=== PATIENT | male | born 1970 | race Caucasian/White ===

== ENCOUNTER → 2016-12-15 | Outpatient (CLI) | payer OTHER ==
[~2016-12-15] MED LIST: ALLERGY10 MG PO; AUGMENTIN 875-1 EACH PO; CYMBALTA60 MG PO; DESYREL 50 MG T50 MG PO; LIPITOR TAB 1010 MG PO; LORTAB 7.5-3251 EACH PO; METHOCARBAMOL500 MG PO; NEURONTIN 300300 MG PO; PAXIL10 MG PO; PRILOSEC OTC20 MG PO; REQUIP0.25 MG PO; ROBAXIN 750 MG750 MG PO; TRAZODONE HCL100 MG PO; ZESTRIL10 MG PO
== END ==
LOC: LAB 23:15
DX: Z02.83 Encounter for blood-alcohol and blood-drug test (principal)
CPT/HCPCS: 36415

== ENCOUNTER 2021-12-05 10:02 | Inpatient (IN) | payer OTHER ==
[~2021-12-05] VITALS: Ht 177.8 cm; Wt 99.0 kg
[~2021-12-05 10:02] MED LIST changes: +ALDACTONE25 MG PO; +COREG6.25 MG PO; +COZAAR25 MG PO; +ECOTRIN81 MG PO; +HUMIBID LA TAB600 MG PO; +LASIX20 MG PO; +LISINOPRIL-HCT1 EAC1 PO; +NORCO 7.5-3251 EACH PO; +OMNICEF 300 MG300 MG PO; +SYMBICORT 16010.2 GM INH
[2021-12-05 10:33] LABS: HEMOGLOBIN 13.2 gm/dl (14.0-17.5); RED BLOOD COUNT 4.61 M/UL (4.20-5.50); WHITE BLOOD COUNT 9.2 K/UL (4.5-11.0)
[2021-12-05 11:18] LABS: BUN/CREATININE RATIO 23 (0-10)
[2021-12-06 06:46] LABS: HEMOGLOBIN 13.3 gm/dl (14.0-17.5); RED BLOOD COUNT 4.67 M/UL (4.20-5.50); WHITE BLOOD COUNT 7.7 K/UL (4.5-11.0)
[2021-12-06 07:59] LABS: BUN/CREATININE RATIO 21 (0-10)
--- NOTE | 2021-12-06 15:29 | NUR ---
PATIENT HAS HEART RATE OF 108 AND BP OF 156/98. PROVIDER NOTIFIED AND FIRST DOSE OF COREG ORDERED TO BE GIVEN NOW. PHARMACY NOTIFIED AND PREVIOUS FIRST DOSE CHANGED FROM 2100 TO 1400. EDUCATION AND MEDICATION GIVEN TO PATIENT AND DAUGHTER. WCTM.
[2021-12-07 06:40] LABS: HEMOGLOBIN 13.2 gm/dl (14.0-17.5); RED BLOOD COUNT 4.76 M/UL (4.20-5.50)
[2021-12-07 07:22] LABS: BUN/CREATININE RATIO 18 (0-10)
[2021-12-08 06:24] LABS: HEMOGLOBIN 13.8 gm/dl (14.0-17.5); RED BLOOD COUNT 4.84 M/UL (4.20-5.50); WHITE BLOOD COUNT 8.3 K/UL (4.5-11.0)
[2021-12-08 06:45] LABS: BUN/CREATININE RATIO 16 (0-10)
[2021-12-08] MEDS ORDERED: ALDACTONE 25MG25 MG PO (13:09)
[2021-12-08] MEDS ORDERED: CARVEDILOL3.125 MG PO (13:09)
[2021-12-08] MEDS ORDERED: COZAAR 25MG TAB25 MG PO (13:09)
[2021-12-08] MEDS ORDERED: LASIX40 MG PO (13:09)
[2021-12-08] MEDS ORDERED: ASPIRIN EC81 MG PO (13:09)
== END 2021-12-08 15:41 | disposition home or self-care (01) | DRG 291 ==
LOC: ER1 10:02 → MED SURG 4 15:50 → CDU 15:50 → MED SURG 4 16:50
PROVIDERS: Emergency Medicine; Physician Assistant Medical; ADMIT Internal Medicine
PROC: B24BZZZ Ultrasonography of Heart with Aorta (ICD-10-PCS; principal; 2021-12-07)
DX: I11.0 Hypertensive heart disease with heart failure (principal); I50.23 Acute on chronic systolic (congestive) heart failure; J18.9 Pneumonia, unspecified organism; R18.8 Other ascites; I25.10 Atherosclerotic heart disease of native coronary artery without angina pectoris; I42.0 Dilated cardiomyopathy; E03.9 Hypothyroidism, unspecified; E78.5 Hyperlipidemia, unspecified; Z96.652 Presence of left artificial knee joint; F15.10 Other stimulant abuse, uncomplicated; F17.220 Nicotine dependence, chewing tobacco, uncomplicated; Z88.2 Allergy status to sulfonamides; Z98.890 Other specified postprocedural states; Z91.14 Patient's other noncompliance with medication regimen; Z82.49 Family history of ischemic heart disease and other diseases of the circulatory system; Z79.82 Long term (current) use of aspirin
CPT/HCPCS: ECHO; 36415; 71045; 80048; 80053; 81001; 82550; 82553; 83605; 83690; 83735; 83880; 84100; 84439; 84443; 84484; 85025; 85027; 85379; 87040; 93005; 93306; 96374; 96375; 99285; G0378; J0696; J1940; J2270; J2405; J7030; Q9967

== ENCOUNTER → 2022-01-27 | Outpatient (CLI) | payer OTHER ==
[~2022-01-27] MED LIST changes: +ALDACTONE 25MG25 MG PO; +ASPIRIN EC81 MG PO; +CARVEDILOL3.125 MG PO; +CLEOCIN HCL300 MG PO; +COZAAR 25MG TAB25 MG PO; +HYDROCODON-ACE1 EAC4 PO; +LASIX40 MG PO; +LEVOFLOXACIN500 MG PO
[2022-01-27 09:01] LABS: HEMOGLOBIN 14.7 gm/dl (14.0-17.5); RED BLOOD COUNT 5.19 M/UL (4.20-5.50); WHITE BLOOD COUNT 6.4 K/UL (4.5-11.0)
[2022-01-27 09:37] LABS: BUN/CREATININE RATIO 25 (0-10)
== END ==
LOC: LAB 07:54
PROVIDERS: Internal Medicine Cardiovascular Disease
DX: I50.22 Chronic systolic (congestive) heart failure (principal); Z20.822 Contact with and (suspected) exposure to COVID-19; I42.0 Dilated cardiomyopathy; I45.4 Nonspecific intraventricular block
CPT/HCPCS: 36415; 71046; 80048; 85025; U0002

== ENCOUNTER 2022-01-31 09:50 | Outpatient (CLI) | payer OTHER ==
[~2022-01-31] VITALS: Ht 175.3 cm; Wt 92.1 kg
[~2022-01-31 09:50] MED LIST changes: -CLEOCIN HCL300 MG PO; -HYDROCODON-ACE1 EAC4 PO; -LEVOFLOXACIN500 MG PO
[2022-01-31] MEDS ORDERED: LEVOFLOXACIN500 MG PO (16:00)
[2022-01-31] MEDS ORDERED: CLEOCIN HCL300 MG PO (16:00)
[2022-01-31] MEDS ORDERED: HYDROCODON-ACE1 EAC4 PO (16:00)
== END 2022-02-01 10:41 | disposition home or self-care (01) ==
LOC: CATH 09:50 → PROG CARE 09:50 → CATH 10:30 → PROG CARE 16:11 → CATH 16:11
DX: I50.22 Chronic systolic (congestive) heart failure (principal); I42.0 Dilated cardiomyopathy; Q21.0 Ventricular septal defect; I10 Essential (primary) hypertension; J45.909 Unspecified asthma, uncomplicated; Z72.0 Tobacco use; Z79.82 Long term (current) use of aspirin
CPT/HCPCS: 33225; 33249; 93005; 93641; 99152; 99153; C1769; C1882; C1895; C1898; C1900; J1644; J2250; J2270; J3010; J3370; J7040; J7050; J7070; Q9965

== ENCOUNTER 2022-02-04 14:31 | Emergency (ER) | payer OTHER ==
[~2022-02-04 14:31] MED LIST changes: +CLEOCIN HCL300 MG PO; +HYDROCODON-ACE1 EAC4 PO; +LEVOFLOXACIN500 MG PO
== END 2022-02-04 17:08 | disposition left against medical advice (07) ==
LOC: ER1 14:31
DX: Z53.21 Procedure and treatment not carried out due to patient leaving prior to being seen by health care provider (principal)